=== PATIENT | female | born 1980 ===

== ENCOUNTER 2019-02-24 11:02 | Inpatient (IN) | payer OTHER ==
[~2019-02-24] VITALS: Ht 162.6 cm; Wt 53.0 kg
--- NOTE | 2019-02-24 11:21 | NUR ---
PATIENT STATES COLD AND FEVER FOR THE PAST FEW DAYS. DIFFICULTY SLEEPING LAST NIGHT. STATES SHE STARTED TO FEEL HEAVINESS IN LEFT ARM AND LEG WHILE IN THE SHOWER THIS MORNING. AT PRESENT, LEFT SIDE OF FACE IS FEELING NUMB.
--- NOTE | 2019-02-24 11:33 | NUR ---
To CT with patient at this time, monitor in place, patient awake, alert, no signs of distress noted.
--- NOTE | 2019-02-24 11:44 | NUR ---
Jose from CT with patient, Stroke RN Gaye and DR Toledo in to assess patient at this time. TeleNeuro consult initiated and MD on screen. All safety measures in place, family at bedside.
[2019-02-24 11:51] LABS: BASOPHILS # (AUTO) 0.1 X10'3 (0-0.2); BASOPHILS % (AUTO) 1.9 % (0-1); EOSINOPHILS % (AUTO) 1.2 % (0-6); HEMATOCRIT 41.7 % (35.0-45.0); HEMOGLOBIN 14.1 g/dl (12.0-16.0); LYMPHOCYTES # (AUTO) 1.1 X10'3 (1.1-4.8); MEAN CORPUSCULAR HEMOGLOBIN 29.7 PG (27.0-31.0); MEAN CORPUSCULAR HGB CONC 33.9 g/dL (33.0-36.5); MEAN CORPUSCULAR VOLUME 87.6 FL (78-98); MEAN PLATELET VOLUME 9.1 FL (7.4-10.4); MONOCYTES # (AUTO) 0.3 X10'3 (0-0.9); MONOCYTES % (AUTO) 6.7 % (2-12); NEUTROPHILS # (AUTO) 2.8 X10'3 (1.8-7.7); NEUTROPHILS % (AUTO) 65.2 % (42-75); PLATELET COUNT 146 X10'3 (140-440); RED BLOOD COUNT 4.76 X10'6 (4.20-5.60); RED CELL DISTRIBUTION WIDTH 12.8 % (11.5-14.5); WHITE BLOOD COUNT 4.2 X10'3 (4.5-11.0)
[2019-02-24] MEDS ORDERED: aspirin 325mg tablet PO ONE (11:55)
[2019-02-24 11:58] LABS: PARTIAL THROMBOPLASTIN TIME 29 SECONDS (22-32)
[2019-02-24 12:00] LABS: ALANINE AMINOTRANSFERASE 18 U/L (12-78); ALBUMIN 4.3 G/DL (3.4-5.0); ALBUMIN/GLOBULIN RATIO 1.2 (1.1-1.5); ALKALINE PHOSPHATASE 67 IU/L (46-116); ANION GAP 7 (8-16); ASPARTATE AMINO TRANSFERASE 16 U/L (10-37); BILIRUBIN,TOTAL 0.3 MG/DL (0.1-1.0); BLOOD UREA NITROGEN 8 MG/DL (7-18); BUN/CREATININE RATIO 10.3 (6.6-38.0); CALCIUM 8.6 MG/DL (8.5-10.1); CHLORIDE 103 MMOL/L (99-107); CREATININE 0.78 MG/DL (0.40-0.90); GLUCOSE 87 MG/DL (70-104); POTASSIUM 3.8 MMOL/L (3.5-5.1); SODIUM 138 MMOL/L (135-145); TOTAL CARBON DIOXIDE 27.6 MMOL/L (24-32); TOTAL PROTEIN 7.9 G/DL (6.4-8.2); eGFR 83 ML/MIN
[2019-02-24] MEDS ORDERED: atorvastatin 20mg tablet PO ONE (12:00)
[2019-02-24 12:04] LABS: TROPONIN I < 0.04 NG/ML (0.0-0.05)
--- NOTE | 2019-02-24 12:15 | NUR ---
STROKE ALERT CALLED OFF PER DR. JOY.
[2019-02-24] MEDS ORDERED: NO HOME MEDS (12:30)
[2019-02-24] MEDS ORDERED: HYDROcodone/acetaminophen 5mg/325mg tablet PO PRN (13:10)
[2019-02-24] MEDS ORDERED: acetaminophen 325mg tablet PO PRN ×2 (13:10)
[2019-02-24] MEDS ORDERED: metoclopramide 5 mg/ml inj IV PRN (13:10)
[2019-02-24] MEDS ORDERED: acetaminophen 650mg rectal suppository RC PRN (13:10)
[2019-02-24] MEDS ORDERED: ondansetron/PF 4mg/2ml inj IV PRN (13:10)
[2019-02-24] MEDS ORDERED: mag hydrox/Alum hydrox/simeth 30ml oral suspension PO PRN (13:10)
[2019-02-24] MEDS ORDERED: magnesium 2GM in 50ml NS 50 ML IV PRN (13:10)
[2019-02-24] MEDS ORDERED: HYDROcodone/acetaminophen 10/325mg tab PO PRN (13:10)
[2019-02-24] MEDS ORDERED: magnesium Cl slow-release 64mg tablet PO PRN (13:10)
[2019-02-24] MEDS ORDERED: magnesium 4gm in 100ml NS 100 ML IV PRN (13:10)
[2019-02-24] MEDS ORDERED: bisacodyl 10mg suppository rectal RC PRN (13:10)
[2019-02-24] MEDS ORDERED: potassium CL 10mEq/100ml bag 100 ML IV PRN ×2 (13:10)
[2019-02-24] MEDS ORDERED: potassium Cl 20 mEq SR tablet PO PRN ×2 (13:10)
[2019-02-24] MEDS ORDERED: magnesium hydroxide 30ml (MOM) UD suspension PO PRN (13:10)
[2019-02-24 13:57] LABS: CHOL/HDL RATIO 1.9 (0.00-4.99); CHOLESTEROL 98 MG/DL (0-200); HDL CHOLESTEROL 51 MG/DL (35-60); LDL CHOLESTEROL 43 MG/DL (50-100); MAGNESIUM 1.9 MG/DL (1.5-2.4); PHOSPHORUS 3.3 MG/DL (2.3-4.5); TRIGLYCERIDES 40 MG/DL (20-135)
[2019-02-24 14:05] LABS: HEMOGLOBIN A1C 5.3 % (4.5-6.2)
[2019-02-24] MEDS: normal saline 1000ml 1,000 ML IV SCH (14:41)
[2019-02-24 15:17] VITALS: BP 112/75
[2019-02-24] MEDS ORDERED: gadobutrol 10mmol/10ml inj. IV ONE (15:46)
[2019-02-24 18:00] VITALS: BP 118/78
[2019-02-24] MEDS: K and/or MAG REPLACEMENT MC SCH (20:00)
[2019-02-24] MEDS ORDERED: temazepam 15mg capsule PO PRN (21:00)
[2019-02-24 22:00] VITALS: BP 99/62
[2019-02-25 02:00] VITALS: BP 95/60
[2019-02-25] MEDS: normal saline 1000ml 1,000 ML IV SCH (03:28)
[2019-02-25 06:20] LABS: BASOPHILS % (AUTO) 0.6 % (0-1); EOSINOPHILS % (AUTO) 1.2 % (0-6); HEMATOCRIT 39.1 % (35.0-45.0); HEMOGLOBIN 13.4 g/dl (12.0-16.0); LYMPHOCYTES # (AUTO) 2.2 X10'3 (1.1-4.8); LYMPHOCYTES % (AUTO) 59.6 % (21-51); MEAN CORPUSCULAR HEMOGLOBIN 29.7 PG (27.0-31.0); MEAN CORPUSCULAR HGB CONC 34.3 g/dL (33.0-36.5); MEAN CORPUSCULAR VOLUME 86.6 FL (78-98); MEAN PLATELET VOLUME 9.2 FL (7.4-10.4); MONOCYTES # (AUTO) 0.2 X10'3 (0-0.9); MONOCYTES % (AUTO) 6.6 % (2-12); NEUTROPHILS # (AUTO) 1.2 X10'3 (1.8-7.7); PLATELET COUNT 145 X10'3 (140-440); RED BLOOD COUNT 4.51 X10'6 (4.20-5.60); RED CELL DISTRIBUTION WIDTH 12.7 % (11.5-14.5); WHITE BLOOD COUNT 3.7 X10'3 (4.5-11.0)
[2019-02-25 06:44] LABS: ALANINE AMINOTRANSFERASE 15 U/L (12-78); ALBUMIN 3.7 G/DL (3.4-5.0); ALBUMIN/GLOBULIN RATIO 1.1 (1.1-1.5); ALKALINE PHOSPHATASE 59 IU/L (46-116); ANION GAP 10 (8-16); ASPARTATE AMINO TRANSFERASE 15 U/L (10-37); BILIRUBIN,TOTAL 0.4 MG/DL (0.1-1.0); BLOOD UREA NITROGEN 15 MG/DL (7-18); BUN/CREATININE RATIO 23.1 (6.6-38.0); CALCIUM 8.1 MG/DL (8.5-10.1); CHLORIDE 106 MMOL/L (99-107); CHOL/HDL RATIO 2.1 (0.00-4.99); CHOLESTEROL 92 MG/DL (0-200); CREATININE 0.65 MG/DL (0.40-0.90); GLUCOSE 86 MG/DL (70-104); HDL CHOLESTEROL 43 MG/DL (35-60); LDL CHOLESTEROL 44 MG/DL (50-100); MAGNESIUM 1.8 MG/DL (1.5-2.4); PHOSPHORUS 3.3 MG/DL (2.3-4.5); POTASSIUM 4.1 MMOL/L (3.5-5.1); SODIUM 140 MMOL/L (135-145); TOTAL CARBON DIOXIDE 24.3 MMOL/L (24-32); TOTAL PROTEIN 7.1 G/DL (6.4-8.2); TRIGLYCERIDES 35 MG/DL (20-135); eGFR > 90 ML/MIN
[2019-02-25 06:59] VITALS: BP 101/65
[2019-02-25 07:31] LABS: TOTAL CELLS COUNTED 100
[2019-02-25 07:32] LABS: PLATELET ESTIMATE NORMAL
[2019-02-25 07:33] LABS: SMUDGE CELLS FEW
[2019-02-25] MEDS: K and/or MAG REPLACEMENT MC SCH (08:00)
[2019-02-25] MEDS ORDERED: aspirin 81mg tablet.DR PO SCH (08:00)
[2019-02-25] MEDS ORDERED: atorvastatin 20mg tablet PO SCH (08:00)
[2019-02-25] MEDS ORDERED: enoxaparin 40mg/0.4ml syringe SUBCUT SCH (08:00)
--- NOTE | 2019-02-25 16:58 | NUR ---
PATIENT WAS DISCHARGED IV AND TELE WAS dc'D PATEINT WAS ALERT AND ORIENTED AT TIME OF DISCHARGE. pATIENT LEFT WITH FAMILY MEMBERS.
== END 2019-02-25 15:15 | disposition home or self-care (01) | DRG 93 ==
LOC: ER 11:03 → ED HOLD 13:10 → EDBEDREQ 13:52 → ORTHO 4S 14:25
PROVIDERS: ADMIT Family Medicine; ATTEND Family Medicine
DX: R29.810 Facial weakness (principal); J06.9 Acute upper respiratory infection, unspecified; Z82.3 Family history of stroke; Z82.49 Family history of ischemic heart disease and other diseases of the circulatory system
CPT/HCPCS: 36415; 70450; 70544; 70547; 70553; 71045; 80053; 80061; 83036; 83735; 83880; 84100; 84443; 84484; 85025; 85610; 85730; 92508; 92616; 93005; 93306; 93880; 97161; 97530; 99285; A9585; G0378; J7030